=== PATIENT | female | born 1990 | race Asian ===

== ENCOUNTER 2021-02-26 08:37 | Outpatient (CLI) | payer BC | END 2021-02-26 08:38 | disposition home or self-care (01) | LOC: CSHMRI 08:37 | PROVIDERS: ATTEND Physician Assistant | DX: M54.42 Lumbago with sciatica, left side (principal); G89.29 Other chronic pain; M47.816 Spondylosis without myelopathy or radiculopathy, lumbar region | CPT/HCPCS: 72148 ==